=== PATIENT | male | born 1980 | race Caucasian/White ===

== ENCOUNTER 2016-10-07 16:04 | Emergency (ER) | payer OTHER, SELFPAY ==
[~2016-10-07] VITALS: Ht 182.9 cm; Wt 184.6 kg
[2016-10-07] MEDS ORDERED: ASPIRIN 81 MG TABLET CHEW PO ONE (16:30)
[2016-10-07] MEDS ORDERED: LABETALOL 5MG/ML, 20ML IVPush ONE (16:30)
[2016-10-07] MEDS ORDERED: ALBUTEROL/IPRATROPIUM 2.5MG/0.5MG, 3 ML NPPB ONE (16:30)
[2016-10-07] MEDS ORDERED: SODIUM CHLORIDE FLUSH 10ML SYR IVF ONE (16:30)
[2016-10-07 17:26] LABS: BLOOD UREA NITROGEN 16 mg/dL (7-18)
[2016-10-07 17:31] LABS: ASPARTATE AMINO TRANSFERASE 20 U/L (15-37)
[2016-10-07 17:32] LABS: IS PT STATUS REG ER OR PRE ER? YES
[2016-10-07] MEDS ORDERED: LABETALOL 5MG/ML, 20ML ONE (17:45)
[2016-10-07] MEDS ORDERED: ASPIRIN 81 MG TABLET CHEW ONE (17:45)
[2016-10-07] MEDS ORDERED: ENALAPRILAT 1.25 MG/ML, 2ML ONE (18:09)
[2016-10-07] MEDS ORDERED: FUROSEMIDE 40 MG/4 ML ONE (18:09)
[2016-10-07 18:18] VITALS: BP 152/93
[2016-10-07] MEDS ORDERED: ENALAPRILAT 1.25 MG/ML, 2ML IV ONE (18:30)
[2016-10-07] MEDS ORDERED: FUROSEMIDE 40 MG/4 ML IV ONE (18:30)
== END 2016-10-07 18:58 | disposition home or self-care (01) ==
LOC: ED 18:52
DX: I10 Essential (primary) hypertension (principal); F17.210 Nicotine dependence, cigarettes, uncomplicated; E66.01 Morbid (severe) obesity due to excess calories; Z68.43 Body mass index [BMI] 50.0-59.9, adult
CPT/HCPCS: 36415; 71010; 80053; 83880; 84443; 84484; 85025; 93005; 94640; 96374; 96375; 99285; J1940; J7620

== ENCOUNTER → 2017-10-06 | Outpatient (CLI) | payer BC | END | disposition home or self-care (01) | LOC: CVU 09:56 | PROVIDERS: ATTEND Internal Medicine Cardiovascular Disease | DX: I07.1 Rheumatic tricuspid insufficiency (principal); I37.1 Nonrheumatic pulmonary valve insufficiency; I11.0 Hypertensive heart disease with heart failure; E66.01 Morbid (severe) obesity due to excess calories | CPT/HCPCS: 93306 ==

== ENCOUNTER 2018-02-17 23:05 | Emergency (ER) | payer BC ==
[~2018-02-17] VITALS: Ht 182.9 cm; Wt 197.0 kg
[2018-02-17 23:08] VITALS: BP 162/96
[2018-02-18] MEDS ORDERED: LIDOCAINE-MPF 1%, 5ML ONE (00:06)
== END 2018-02-18 02:10 | disposition home or self-care (01) ==
LOC: ED 23:59
DX: S31.31XA Laceration without foreign body of scrotum and testes, initial encounter (principal); I10 Essential (primary) hypertension; E66.01 Morbid (severe) obesity due to excess calories; Z68.43 Body mass index [BMI] 50.0-59.9, adult; X58.XXXA Exposure to other specified factors, initial encounter; Y93.89 Activity, other specified; Y92.89 Other specified places as the place of occurrence of the external cause; Y99.8 Other external cause status
CPT/HCPCS: 12001; 99283